=== PATIENT | female | born 1995 | race Caucasian/White ===

== ENCOUNTER 2019-09-27 20:44 | Emergency (ER) | payer BC, OTHER ==
[~2019-09-27] VITALS: Ht 167.6 cm; Wt 77.1 kg
[~2019-09-27 20:44] MED LIST: MINO100T3 PO
[2019-09-27 21:53] VITALS: BP_SYST 139
[2019-09-27 22:18] LABS: BASOPHILS # (AUTO) 0.1 K/uL (0.0-0.2); BASOPHILS % (AUTO) 0.5 % (0.0-2.0); EOSINOPHILS # (AUTO) 0.1 K/uL (0.0-0.4); EOSINOPHILS % (AUTO) 1.3 % (0.0-4.0); HEMATOCRIT 40.1 % (36-48); HEMOGLOBIN 13.5 g/dL (12.0-16.0); LYMPHOCYTES # (AUTO) 2.3 K/uL (1.0-5.5); LYMPHOCYTES % (AUTO) 21.3 % (20.5-51.5); MEAN CORPUSCULAR HEMOGLOBIN 31 pg (27-31); MEAN CORPUSCULAR HGB CONC 34 % (32-36); MEAN CORPUSCULAR VOLUME 92 fL (79.0-98.0); MONOCYTES # (AUTO) 0.9 K/uL (0.0-1.0); MONOCYTES % (AUTO) 8.4 % (1.7-9.3); NEUTROPHILS # (AUTO) 7.4 K/uL (1.8-7.7); NEUTROPHILS % (AUTO) 68.5 % (40.0-70.0); PLATELET COUNT (AUTO) 274 K/uL (130-430); RED BLOOD CELL COUNT(AUTO) 4.35 MIL/uL (4.2-6.2); RED CELL DISTRIBUTION WIDTH 12.6 % (9.0-15.0); WHITE BLOOD COUNT (AUTO) 10.8 K/uL (4.8-10.8)
[2019-09-27 22:34] LABS: CALCIUM 8.6 mg/dL (8.4-11.0); CREATININE 0.76 mg/dL (0.55-1.30); POTASSIUM 3.2 mmol/L (3.5-5.1)
[2019-09-27 22:45] LABS: ALBUMIN 3.6 g/dL (3.4-4.8); TOTAL BILIRUBIN 0.3 mg/dL (0.0-1.0)
[2019-09-27 23:13] LABS: BILIRUBIN,URINE NEGATIVE (NEGATIVE); CLARITY/URINE CLEAR (CLEAR); COLOR,URINE YELLOW (YELLOW); GLUCOSE,URINE NEGATIVE (NEGATIVE); KETONES,URINE NEGATIVE (NEGATIVE); LEUKOCYTE ESTERASE ,URINE 1+ (NEGATIVE); NITRITE, URINE NEGATIVE (NEGATIVE); PROTEIN URINE NEGATIVE (NEGATIVE); UROBILINOGEN,URINE 0.2 (0.2-1.0)
[2019-09-27 23:18] LABS: HCG,QUAL RESULT NEGATIVE (NEGATIVE)
[2019-09-27 23:19] LABS: BLOOD, URINE TRACE (NEGATIVE)
[2019-09-27 23:29] LABS: BACTERIA,URINE FEW /HPF (None Seen)
[2019-09-27 23:41] LABS: AMYLASE 32 U/L (0-100); LIPASE 85 U/L (73-393)
[2019-09-27] MEDS ORDERED: CIPROFLOXACIN LACT 400 MG/D5W 200 ML IV ONE (23:45)
[2019-09-27 23:55] LABS: PROTHROMBIN TIME 9.9 SECS (9.5-12.5)
[2019-09-28 03:00] VITALS: BP_SYST 133
== END 2019-09-28 03:00 | disposition home or self-care (01) ==
LOC: SED 20:44
DX: K52.9 Noninfective gastroenteritis and colitis, unspecified (principal); N39.0 Urinary tract infection, site not specified; Z88.1 Allergy status to other antibiotic agents
CPT/HCPCS: 36415; 74176; 80053; 81000; 81025; 82150; 83690; 84703; 85025; 85610; 87086; 96365; 99284; J0744